=== PATIENT | female | born 1960 | race Caucasian/White ===

== ENCOUNTER 2017-07-01 10:41 | Inpatient (IN) | payer OTHER ==
[2017-07-01] MEDS: PANTOPRAZOLE IV 80 MG in SOD CHLORIDE 0.9% 100 ML IV ×3 (02:30→20:00)
[2017-07-01] MEDS: LORAZEPAM 2 MG INJ IV ×3 (13:25→22:40)
[2017-07-01 13:38] LABS: ADD MAN DIFF? NO
[2017-07-01 13:42] LABS: ABNORMAL IP MESSAGE 1; BASOPHILS % 0.2 % (0.0-2.0); HEMOGLOBIN 14.6 g/dl (12.0-16.0); LYMPHOCYTES # 0.8 10^3/ul (0.8-2.9); LYMPHOCYTES % 7.9 % (15.0-51.0); MEAN CORPUSCULAR HEMOGLOBIN 32.6 pg (29.0-33.0); MEAN CORPUSCULAR HGB CONC 34.8 g/dl (32.0-37.0); MEAN CORPUSCULAR VOLUME 93.8 fl (82.0-101.0); MEAN PLATELET VOLUME 9.7 fl (7.4-10.4); MONOCYTE # 1.5 10^3/ul (0.3-0.9); MONOCYTES % 15.2 % (0.0-11.0); NEUTROPHIL # 7.5 10^3/ul (1.6-7.5); NEUTROPHILS % 76.3 % (39.0-77.0); PLATELET COUNT 87 10^3/UL (140-415); RED BLOOD COUNT 4.48 10^6/ul (4.20-5.40); RED CELL DISTRIBUTION WIDTH 11.6 % (11.5-14.5)
[2017-07-01 13:42] LABS: WHITE BLOOD COUNT 9.9 10^3/ul (4.8-10.8)
[2017-07-01] MEDS: OCTREOTIDE 50 MCG in SOD CHLORIDE 0.9% 25 ML IVPB (13:42)
[2017-07-01] MEDS: MAGNESIUM SULFATE 2 GM, MULTIVITAMINS 10 ML, THIAMINE 100 MG, FOLIC ACID 1 MG in SOD CH... IV (13:42)
[2017-07-01] MEDS: ONDANSETRON 4 MG INJ IV ×4 (13:45→19:19)
[2017-07-01] MEDS: HYDROmorphONE 1 MG/ML SYG IV ×2 (13:56→17:53)
[2017-07-01] MEDS: PANTOPRAZOLE IV 80 MG in SOD CHLORIDE 0.9% 100 ML IVPB (14:04)
[2017-07-01] MEDS: OCTREOTIDE 500 MCG in SOD CHLORIDE 0.9% 49 ML IV (14:04)
[2017-07-01 14:06] LABS: INR 0.79; PT RATIO 0.9
[2017-07-01 14:09] LABS: ALANINE AMINOTRANSFERASE 36 IU/L (13-69); ALBUMIN 3.9 g/dl (3.3-4.9); ALBUMIN/GLOBULIN RATIO 1.08; ALKALINE PHOSPHATASE 119 IU/L (42-121); ANION GAP 21 (8-16); ASPARTATE AMINO TRANSFERASE 48 IU/L (15-46); BILIRUBIN,INDIRECT 0.1 mg/dl (0-1.1); BILIRUBIN,TOTAL 0.1 mg/dl (0.2-1.3); BLOOD UREA NITROGEN 8 mg/dl (7-20); CALCIUM 9.2 mg/dl (8.4-10.2); CARBON DIOXIDE 27 mmol/L (21-31); CHLORIDE 91 mmol/L (97-110); CREATININE 0.62 mg/dl (0.44-1.00); GLUCOSE 159 mg/dl (70-220); POTASSIUM 3.2 mmol/L (3.5-5.1); SODIUM 136 mmol/L (135-144); TOTAL PROTEIN 7.5 g/dl (6.1-8.1)
[2017-07-01 14:17] LABS: PARTIAL THROMBOPLASTIN TIME 34.3 Sec (25.0-35.0)
[2017-07-01] MEDS: SOD CHLORIDE 0.9% 1,000 ML IV (19:05)
[2017-07-01] MEDS: ACETAMINOPHEN 325 MG TAB PO (19:20)
[2017-07-01] MEDS ORDERED: NACL 0.9% 3 ML SYG IV (20:00)
[2017-07-01] MEDS: D5-NS + KCL 20 MEQ 1,000 ML IV (20:19)
[2017-07-01] MEDS: OCTREOTIDE 1 MG in DEXTROSE 5% 95 ML IV (21:40)
[2017-07-02] MEDS: D5-NS + KCL 20 MEQ 1,000 ML IV ×4 (03:14→22:43)
[2017-07-02] MEDS: PANTOPRAZOLE IV 80 MG in SOD CHLORIDE 0.9% 100 ML IV ×2 (05:39→15:57)
[2017-07-02] MEDS: LORAZEPAM 2 MG INJ IV (06:51)
[2017-07-02 08:20] LABS: WHITE BLOOD COUNT 6.6 10^3/ul (4.8-10.8)
[2017-07-02 08:20] LABS: ABNORMAL IP MESSAGE 1; HEMATOCRIT 35.2 % (37.0-47.0); HEMOGLOBIN 12.1 g/dl (12.0-16.0); MEAN CORPUSCULAR HEMOGLOBIN 32.9 pg (29.0-33.0); MEAN CORPUSCULAR HGB CONC 34.4 g/dl (32.0-37.0); MEAN CORPUSCULAR VOLUME 95.7 fl (82.0-101.0); MEAN PLATELET VOLUME 9.8 fl (7.4-10.4); RED BLOOD COUNT 3.68 10^6/ul (4.20-5.40); RED CELL DISTRIBUTION WIDTH 11.7 % (11.5-14.5)
[2017-07-02 08:29] LABS: ADD MAN DIFF? YES; PLATELET COUNT 59 10^3/UL (140-415); POSITIVE DIFF @See below
[2017-07-02 08:40] LABS: ALANINE AMINOTRANSFERASE 31 IU/L (13-69); ALBUMIN 2.7 g/dl (3.3-4.9); ALBUMIN/GLOBULIN RATIO 0.84; ALKALINE PHOSPHATASE 87 IU/L (42-121); ANION GAP 9 (8-16); ASPARTATE AMINO TRANSFERASE 31 IU/L (15-46); BILIRUBIN,INDIRECT 0.4 mg/dl (0-1.1); BILIRUBIN,TOTAL 0.4 mg/dl (0.2-1.3); BLOOD UREA NITROGEN 8 mg/dl (7-20); CALCIUM 8.8 mg/dl (8.4-10.2); CARBON DIOXIDE 29 mmol/L (21-31); CHLORIDE 99 mmol/L (97-110); CREATININE 0.78 mg/dl (0.44-1.00); GLUCOSE 159 mg/dl (70-220); PHOSPHORUS 1.9 mg/dl (2.5-4.9); POTASSIUM 3.6 mmol/L (3.5-5.1); SODIUM 133 mmol/L (135-144); TOTAL PROTEIN 5.9 g/dl (6.1-8.1)
[2017-07-02] MEDS: MULTIVITAMINS 10 ML, THIAMINE 100 MG, FOLIC ACID 1 MG in SOD CHLORIDE 0.9% 1,000 ML IVPB (09:42)
[2017-07-02 10:38] LABS: BAND NEUTROPHILS #M 0.8 10^3/ul (0.0-0.6); BAND NEUTROPHILS % (M) 13 % (0-4); GIANT THROMBO% (M) 1 % (0-0); LYMPHOCYTES #M 0.2 10^3/ul (0.8-2.9); LYMPHOCYTES % (M) 4 % (15-51); MONOCYTE #M 0.6 10^3/ul (0.3-0.9); MONOCYTES % (M) 10 % (0-11); PLATELET ESTIMATE DECREASED; REACTIVE LYMPHOCYTES #M 0.1 10^3/ul (0.0-0.0); REACTIVE LYMPHOCYTES% (M) 2 % (0-0); SEG NEUT #M 4.7 10^3/ul (1.6-7.5); SEGMENTED NEUTROPHILS (M) % 71 % (39-77); SMUDGE%M 5 % (0-0)
[2017-07-02] MEDS: CHLORDIAZEPOXIDE 25 MG CAP PO ×2 (13:03→19:59)
[2017-07-02] MEDS: ACETAMINOPHEN 325 MG TAB PO ×2 (13:04→19:59)
[2017-07-02] MEDS: BARIUM SULF 2% 450 ML BTL (BERRY SMOOTHIE) PO (14:43)
[2017-07-02] MEDS: OCTREOTIDE 1 MG in DEXTROSE 5% 95 ML IV (15:58)
[2017-07-02] MEDS: SOD CHLORIDE 0.9% 100 ML (16:10)
[2017-07-02] MEDS: IOHEXOL 300MG/ML 150 ML BTL (16:11)
[2017-07-03] MEDS: PANTOPRAZOLE IV 80 MG in SOD CHLORIDE 0.9% 100 ML IV ×4 (02:18→22:00)
[2017-07-03] MEDS: D5-NS + KCL 20 MEQ 1,000 ML IV ×2 (05:17→07:10)
[2017-07-03] MEDS: CHLORDIAZEPOXIDE 25 MG CAP PO ×2 (08:23→20:09)
[2017-07-03] MEDS: OCTREOTIDE 1 MG in DEXTROSE 5% 95 ML IV ×2 (12:00→14:10)
[2017-07-03 12:09] LABS: ABNORMAL IP MESSAGE 1; HEMATOCRIT 34.7 % (37.0-47.0); HEMOGLOBIN 11.7 g/dl (12.0-16.0); MEAN CORPUSCULAR HEMOGLOBIN 33.5 pg (29.0-33.0); MEAN CORPUSCULAR HGB CONC 33.7 g/dl (32.0-37.0); MEAN CORPUSCULAR VOLUME 99.4 fl (82.0-101.0); MEAN PLATELET VOLUME 11.2 fl (7.4-10.4); PLATELET COUNT 57 10^3/UL (140-415); RED BLOOD COUNT 3.49 10^6/ul (4.20-5.40); RED CELL DISTRIBUTION WIDTH 11.8 % (11.5-14.5)
[2017-07-03 12:09] LABS: WHITE BLOOD COUNT 5.5 10^3/ul (4.8-10.8)
[2017-07-03 12:20] LABS: ADD MAN DIFF? YES; POSITIVE DIFF @See below
[2017-07-03 12:27] LABS: ALANINE AMINOTRANSFERASE 44 IU/L (13-69); ALBUMIN 2.6 g/dl (3.3-4.9); ALBUMIN/GLOBULIN RATIO 0.83; ALKALINE PHOSPHATASE 76 IU/L (42-121); ANION GAP 10 (8-16); ASPARTATE AMINO TRANSFERASE 91 IU/L (15-46); BILIRUBIN,INDIRECT 0.3 mg/dl (0-1.1); BILIRUBIN,TOTAL 0.3 mg/dl (0.2-1.3); BLOOD UREA NITROGEN 4 mg/dl (7-20); CALCIUM 8.6 mg/dl (8.4-10.2); CARBON DIOXIDE 26 mmol/L (21-31); CHLORIDE 104 mmol/L (97-110); CREATININE 0.78 mg/dl (0.44-1.00); GLUCOSE 179 mg/dl (70-220); POTASSIUM 3.8 mmol/L (3.5-5.1); SODIUM 136 mmol/L (135-144); TOTAL PROTEIN 5.7 g/dl (6.1-8.1)
[2017-07-03 13:08] LABS: BAND NEUTROPHILS #M 0.7 10^3/ul (0.0-0.6); BAND NEUTROPHILS % (M) 14 % (0-4); GIANT THROMBO% (M) 3 % (0-0); LYMPHOCYTES #M 0.6 10^3/ul (0.8-2.9); LYMPHOCYTES % (M) 12 % (15-51); MONOCYTE #M 0.4 10^3/ul (0.3-0.9); MONOCYTES % (M) 8 % (0-11); PLATELET ESTIMATE DECREASED; REACTIVE LYMPHOCYTES #M 0.1 10^3/ul (0.0-0.0); REACTIVE LYMPHOCYTES% (M) 2 % (0-0); SEG NEUT #M 3.6 10^3/ul (1.6-7.5); SEGMENTED NEUTROPHILS (M) % 64 % (39-77); SMUDGE%M 5 % (0-0)
[2017-07-03] MEDS: HYDROmorphONE 0.5 MG/0.5 ML SYG IV (13:45)
[2017-07-03] MEDS: ACETAMINOPHEN 325 MG TAB PO (20:09)
[2017-07-04] MEDS: CHLORDIAZEPOXIDE 25 MG CAP PO (04:01)
[2017-07-04] MEDS: ACETAMINOPHEN 325 MG TAB PO (04:01)
[2017-07-04] MEDS: OCTREOTIDE 1 MG in DEXTROSE 5% 95 ML IV ×2 (08:00→09:53)
[2017-07-04] MEDS: PANTOPRAZOLE IV 80 MG in SOD CHLORIDE 0.9% 100 ML IV ×3 (08:00→18:00)
[2017-07-04] MEDS: LORAZEPAM 2 MG INJ IV ×2 (16:30→21:19)
[2017-07-04] MEDS: PROPOFOL 20 ML (19:07)
[2017-07-04] MEDS ORDERED: METOCLOPRAMIDE 10 MG INJ IV (19:30)
[2017-07-04] MEDS ORDERED: DIPHENHYDRAMINE 50 MG INJ IV (19:30)
[2017-07-04] MEDS ORDERED: FENTAnyl 50 MCG/ML VIAL IV ×3 (19:30)
[2017-07-04] MEDS ORDERED: MIDAZOLAM 1 MG/ML 2 ML INJ IV (19:30)
[2017-07-04] MEDS ORDERED: MEPERIDINE 25 MG INJ IV (19:30)
[2017-07-04] MEDS ORDERED: LABETALOL HCL 20MG INJ IV (19:30)
[2017-07-04] MEDS ORDERED: EPHEDrine SULFATE 50 MG/5 ML SYG IV (19:30)
[2017-07-04] MEDS ORDERED: ONDANSETRON 4 MG INJ IV (19:30)
[2017-07-04] MEDS ORDERED: OXYCODONE/ACETAMINOPHEN (5/325) TAB PO ×2 (19:30)
[2017-07-04] MEDS ORDERED: hydrALAzine 20 MG INJ IV (19:30)
[2017-07-04] MEDS: HYDROmorphONE 0.5 MG/0.5 ML SYG IV (22:16)
[2017-07-05] MEDS: ACETAMINOPHEN 325 MG TAB PO (04:11)
[2017-07-05] MEDS: PANTOPRAZOLE IV 80 MG in SOD CHLORIDE 0.9% 100 ML IV ×2 (04:57→14:00)
[2017-07-05 07:36] LABS: ADD MAN DIFF? NO
[2017-07-05 07:48] LABS: ABNORMAL IP MESSAGE 1; BASOPHILS % 0.5 % (0.0-2.0); EOSINOPHILS # 0.1 10^3/ul (0.0-0.5); EOSINOPHILS % 0.8 % (0.0-7.0); HEMATOCRIT 33.9 % (37.0-47.0); HEMOGLOBIN 11.3 g/dl (12.0-16.0); LYMPHOCYTES % 13.9 % (15.0-51.0); MEAN CORPUSCULAR HEMOGLOBIN 32.9 pg (29.0-33.0); MEAN CORPUSCULAR HGB CONC 33.3 g/dl (32.0-37.0); MEAN CORPUSCULAR VOLUME 98.8 fl (82.0-101.0); MEAN PLATELET VOLUME 9.9 fl (7.4-10.4); MONOCYTE # 1.6 10^3/ul (0.3-0.9); NEUTROPHIL # 4.7 10^3/ul (1.6-7.5); NEUTROPHILS % 63.1 % (39.0-77.0); PLATELET COUNT 188 10^3/UL (140-415); RED BLOOD COUNT 3.43 10^6/ul (4.20-5.40); RED CELL DISTRIBUTION WIDTH 11.8 % (11.5-14.5)
[2017-07-05 07:48] LABS: WHITE BLOOD COUNT 7.5 10^3/ul (4.8-10.8)
[2017-07-05 08:07] LABS: POSITIVE DIFF @See below
[2017-07-05 08:10] LABS: ALANINE AMINOTRANSFERASE 37 IU/L (13-69); ALBUMIN 2.6 g/dl (3.3-4.9); ALBUMIN/GLOBULIN RATIO 0.83; ALKALINE PHOSPHATASE 82 IU/L (42-121); ANION GAP 8 (8-16); ASPARTATE AMINO TRANSFERASE 28 IU/L (15-46); BILIRUBIN,INDIRECT 0.3 mg/dl (0-1.1); BILIRUBIN,TOTAL 0.3 mg/dl (0.2-1.3); BLOOD UREA NITROGEN 4 mg/dl (7-20); CALCIUM 8.6 mg/dl (8.4-10.2); CARBON DIOXIDE 29 mmol/L (21-31); CHLORIDE 102 mmol/L (97-110); CREATININE 0.76 mg/dl (0.44-1.00); GLUCOSE 118 mg/dl (70-220); SODIUM 136 mmol/L (135-144); TOTAL PROTEIN 5.7 g/dl (6.1-8.1)
[2017-07-05 08:21] LABS: POTASSIUM 2.9 mmol/L (3.5-5.1)
[2017-07-05] MEDS: POTASSIUM CHLORIDE (SR) 20 MEQ TAB PO (10:03)
[2017-07-05] MEDS: LORAZEPAM 2 MG INJ IV (19:04)
[2017-07-06] MEDS: PANTOPRAZOLE (EC) 40 MG TAB PO (05:56)
[2017-07-06] MEDS: LORAZEPAM 2 MG INJ IV ×4 (06:06→22:07)
[2017-07-06] MEDS: CHLORDIAZEPOXIDE 25 MG CAP PO ×2 (10:48→19:11)
[2017-07-06 15:37] LABS: ANION GAP 9 (8-16); BLOOD UREA NITROGEN 5 mg/dl (7-20); CALCIUM 9.1 mg/dl (8.4-10.2); CARBON DIOXIDE 27 mmol/L (21-31); CHLORIDE 106 mmol/L (97-110); CREATININE 0.82 mg/dl (0.44-1.00); GLUCOSE 111 mg/dl (70-220); POTASSIUM 3.6 mmol/L (3.5-5.1); SODIUM 138 mmol/L (135-144)
[2017-07-06] MEDS: HYDROmorphONE 0.5 MG/0.5 ML SYG IV (21:14)
[2017-07-07] MEDS: PANTOPRAZOLE (EC) 40 MG TAB PO ×2 (06:18→07:24)
[2017-07-07] MEDS: HYDROmorphONE 0.5 MG/0.5 ML SYG IV ×2 (06:18→21:23)
[2017-07-07] MEDS: LORAZEPAM 2 MG INJ IV (14:24)
[2017-07-07 17:07] LABS: ADD UMIC YES; UR ASCORBIC ACID NEGATIVE (NEGATIVE); UR BACTERIA FEW /HPF (NONE SEEN); UR BILIRUBIN (Dip) NEGATIVE (NEGATIVE); UR BLOOD (Dip) 1+ mg/dL (NEGATIVE); UR CLARITY CLEAR (CLEAR); UR COLOR STRAW (YELLOW); UR GLUCOSE (Dip) NEGATIVE (NEGATIVE); UR KETONES (Dip) NEGATIVE (NEGATIVE); UR LEUKOCYTE ESTERASE (Dip) 1+ Leu/ul (NEGATIVE); UR NITRITE (Dip) NEGATIVE (NEGATIVE); UR RBC 1 /HPF (0-5); UR SPECIFIC GRAVITY (Dip) 1.003 (1.003-1.030); UR TOTAL PROTEIN (Dip) NEGATIVE (NEGATIVE); UR UROBILINOGEN (Dip) NEGATIVE (NEGATIVE); UR WBC 21 /HPF (0-5)
[2017-07-07] MEDS: CIPROFLOXACIN 500 MG TAB PO (18:04)
[2017-07-07] MEDS: CHLORDIAZEPOXIDE 25 MG CAP PO (21:23)
[2017-07-08] MEDS: CHLORDIAZEPOXIDE 25 MG CAP PO ×2 (05:33→09:28)
[2017-07-08] MEDS: HYDROmorphONE 0.5 MG/0.5 ML SYG IV (05:33)
[2017-07-08] MEDS: CIPROFLOXACIN 500 MG TAB PO (05:33)
[2017-07-08] MEDS: ONDANSETRON 4 MG INJ IV (09:28)
== END 2017-07-08 11:12 | disposition home or self-care (01) | DRG 378 ==
LOC: TEL 21:53 → E/R 10:41 → TEL 18:23
PROC: 0DB68ZX Excision of Stomach, Via Natural or Artificial Opening Endoscopic, Diagnostic (ICD-10-PCS; principal; 2017-07-04 18:00)
DX: K29.21 Alcoholic gastritis with bleeding (principal); F10.239 Alcohol dependence with withdrawal, unspecified; D69.6 Thrombocytopenia, unspecified; K70.9 Alcoholic liver disease, unspecified; N39.0 Urinary tract infection, site not specified; I85.00 Esophageal varices without bleeding; K20.9 Esophagitis, unspecified; F10.229 Alcohol dependence with intoxication, unspecified; Y90.6 Blood alcohol level of 120-199 mg/100 ml; E87.6 Hypokalemia; F41.9 Anxiety disorder, unspecified; J44.9 Chronic obstructive pulmonary disease, unspecified
CPT/HCPCS: 36415; 71045; 74177; 80048; 80053; 80306; 81001; 83036; 83735; 84100; 85025; 85610; 85730; 86850; 86900; 86901; 87086; 88305; 93005; 96361; 96374; 96375; 96376; 99285-25